=== PATIENT | female | born 1955 | race African-American/Black ===

== ENCOUNTER → 2020-06-20 14:12 | Outpatient (CLI) | payer MEDICARE, SELFPAY ==
--- NOTE | ~2020-06-20 | XR_ITS ---
XR hand LT 2V DATE: 06/20/2020 14:48 INDICATION: Left hand and shoulder pain TECHNIQUE: 3 views COMPARISON: None FINDINGS: There is moderately severe osteoarthritis at the first carpometacarpal joint. There is oste ophytic change at multiple interphalangeal joints. No fracture or dislocation, periosteal reaction or bone destruction is detected. IMPRESSION: Polyarticular osteoarthritis Reviewed, dictated and finalized at location A.
--- NOTE | ~2020-06-20 | XR_ITS ---
XR shoulder LT min 2V DATE: 06/20/2020 14:49 INDICATION: Left shoulder and hand pain TECHNIQUE: 4 views COMPARISON: None FINDINGS: There is prominent joint space narrowing and spurring at the left glenohumeral joint consis tent with severe osteoarthritis. No fracture or dislocation, periosteal reaction or bone destruction or any significant abnormal soft tissue calcification at the left shoulder is evident. IMPRESSION: Severe left glenohumeral osteoarthritis Reviewed, dictated and finalized at location A.
== END ==
PROVIDERS: PCP Family Medicine; Visit Provider Family Medicine
DX: M19.012 Primary osteoarthritis, left shoulder (principal); M19.042 Primary osteoarthritis, left hand
CPT/HCPCS: 73030; 73120

== ENCOUNTER → 2020-08-01 12:36 | Outpatient (CLI) | payer MEDICARE, SELFPAY ==
--- NOTE | ~2020-08-01 | XR_ITS ---
XR knee LT 3V 08/01/2020 13:33 Indication: Elevated rheumatoid factor. Procedure: 3 views left knee Comparison: 03/26/2016 Findings: There is moderate-severe osteoarthritis of the left knee. No fracture or traumatic malalign ment. No significant joint effusion. No erosive changes to suggest inflammatory arthropathy. Impression: 1: Severe osteoarthritis of the left knee. Reviewed, dictated and finalized at location B. Impression: 1: Severe osteoarthritis of the left knee.
--- NOTE | ~2020-08-01 | XR_ITS ---
EXAMINATION: XR sacroiliac joints min 3V INDICATION: Elevated rheumatoid factor TECHNIQUE: Three views of the sacroiliac joints are obtained. COMPARISON: 03/26/2016, 08/11/2013 FINDINGS: Bone alignment is normal. There is no fracture. No significant sclerosis or erosion are ellis ntified. Pelvic calcifications are noted. There is moderate lumbar spondylosis. The bowel gas pattern is normal. IMPRESSION: 1. No acute osseous abnormality. Reviewed, dictated and finalized at location A.
--- NOTE | ~2020-08-01 | XR_ITS ---
XR knee RT 3V 08/01/2020 13:34 Indication: Elevated rheumatoid factor. Procedure: 3 views right knee Comparison: 03/26/2016 Findings: There is severe tricompartment osteoarthritis of the right knee. No fracture, subluxation o r dislocation. No significant joint effusion. Impression: 1: Severe osteoarthritis of the right knee. Reviewed, dictated and finalized at location B. Impression: 1: Severe osteoarthritis of the right knee.
--- NOTE | ~2020-08-01 | XR_ITS ---
XR lumbar spine 2-3V 08/01/2020 13:33 Indication: Elevated rheumatoid factor. Low back pain. Procedure: 3 views lumbar spine Comparison: No prior studies for comparison. Findings: There is disc narrowing at all lumbar levels. Mild facet hypertrophy at L4-5 and L5-S1. No fracture, subluxation or dislocation. No evidence for spondylolisthesis. Sacral foramen are symmetric . Normal lumbar alignment. Impression: 1: Moderate lumbar spondylosis. Reviewed, dictated and finalized at location B. Impression: 1: Moderate lumbar spondylosis.
--- NOTE | ~2020-08-01 | XR_ITS ---
EXAMINATION:XR cervical spine 4-5V DATE: 08/01/2020 13:33 INDICATION: Neck pain, elevated rheumatoid factor TECHNIQUE: AP, lateral, lateral swimmers and odontoid views of the cervical spine are provided. COMPARISON: CT, 06/22/2015 FINDINGS: There are 2 mm of chronic retrolisthesis of C3 on C4. The odontoid is intact. No fracture i s identified. The vertebral body heights are maintained. There is chronic moderate to severe loss of intervertebral disc space height at C3-4 and C6-7. Small degenerative osteophytes project from the an terior endplates of multiple vertebral bodies. IMPRESSION: 1. Moderate cervical spondylosis without acute findings or significant interval change. Reviewed, dictated and finalized at location A.
== END ==
PROVIDERS: PCP Physician Assistant; Visit Provider Physician Assistant Medical
DX: R76.8 Other specified abnormal immunological findings in serum (principal); M25.50 Pain in unspecified joint; M47.812 Spondylosis without myelopathy or radiculopathy, cervical region; M47.816 Spondylosis without myelopathy or radiculopathy, lumbar region; M17.0 Bilateral primary osteoarthritis of knee
CPT/HCPCS: 72050; 72100; 72202; 73562

== ENCOUNTER → 2022-05-01 11:22 | Outpatient (CLI) | payer MEDICAID, SELFPAY ==
--- NOTE | ~2022-05-01 | XR_ITS ---
XR lumbar spine 2-3V DATE: 05/01/2022 12:02 INDICATION: Low back pain TECHNIQUE: AP, lateral, coned lateral lumbosacral views COMPARISON: 08/01/2020 lumbar spine FINDINGS: Diffuse idiopathic skeletal hyperostosis of the thoracic spine. Included lower thoracic and lumbar pedicles are intact. No fracture or bone destruction of the lumbar spine. Moderately severe degenerative disc disease noted throughout the lumbar and lower cervical spine. There is prominent degenerative change at the apophyseal joints with associated grade 1 anterolisthes is at L2-3 and L4-5. IMPRESSION: Diffuse idiopathic skeletal hyperostosis of the thoracic spine Moderately severe degenerative disease throughout the lumbar spine Degenerative changes apophyseal joints with associated minimal grade 1 anterolisthesis at L2-3 and L4 -5 Reviewed, dictated and finalized at location B. IMPRESSION: Diffuse idiopathic skeletal hyperostosis of the thoracic spine Moderately severe degenerative disease throughout the lumbar spine Degenerative changes apophyseal joints with associated minimal grade 1 anteroli sthesis at L2-3 and L4-5
== END ==
PROVIDERS: PCP Physician Assistant; Visit Provider Physician Assistant
DX: M48.14 Ankylosing hyperostosis [Forestier], thoracic region (principal); M47.896 Other spondylosis, lumbar region
CPT/HCPCS: 72100

== ENCOUNTER → 2022-05-15 10:56 | Outpatient (CLI) | payer MEDICARE, MEDICAID, SELFPAY ==
--- NOTE | ~2022-05-15 | XR_ITS ---
XR hand BI arthritis min 3V DATE: 05/15/2022 11:31 INDICATION: Joint pain. Rheumatoid arthritis. TECHNIQUE: 5 views of each hand COMPARISON: 06/20/2020 left hand FINDINGS: Left hand: Diffuse osteopenia. There is interval surgical resection of the triquetrum bone since 06/20/2020. Small residual bone fragm ents are noted in this area. Osteoarthritic change at the triscaphe and first carpometacarpal joint, first metacarpophalangeal and multiple interphalangeal joints. No erosive changes are noted. No fracture, dislocation, periosteal reaction or bone destruction. Right hand: Osteopenia. There is osteophytic change at the radiocarpal and triscaphe joints and particularly at the first car pometacarpal joint. Mild osteophyte is at first and second metacarpophalangeal joints and multiple interphalangeal joints . No erosive change is noted. No fracture, dislocation, periosteal reaction or bone destruction. IMPRESSION: Osteopenia Polyarticular osteoarthritis of both hands; no erosive changes noted Status post left triquetrum resection Reviewed, dictated and finalized at location B.
--- NOTE | ~2022-05-15 | XR_ITS ---
XR foot RT min 3V DATE: 05/15/2022 11:31 INDICATION: Rheumatoid arthritis. Joint pain. TECHNIQUE: 5 views COMPARISON: None FINDINGS: Diffuse osteopenia. Prominent plantar calcaneal and slight posterior calcaneal enthesopathy. Prominent osteophytic change at the tarsal and particularly tarsometatarsal and first metatarsophalan geal joints and to a lesser extent interphalangeal joints. No fracture, dislocation, periosteal reaction or bone destruction. IMPRESSION: Osteopenia Polyarticular osteoarthritis Calcaneal enthesopathy Reviewed, dictated and finalized at location B.
--- NOTE | ~2022-05-15 | XR_ITS ---
XR foot LT min 3V DATE: 05/15/2022 11:31 INDICATION: Left foot pain. Rheumatoid arthritis. TECHNIQUE: 4 views COMPARISON: None FINDINGS: There is osteopenia. There is severe osteoarthritic change with obliteration of joint space and prominent spurring at the first metatarsophalangeal joint. Osteoarthritic change at the tarsometatarsal joints. There is osteoa rthritic change at the interphalangeal joints as well. Prominent plantar calcaneal enthesopathy. No fracture, dislocation, periosteal reaction or bone destruction is detected. IMPRESSION: Osteopenia Plantar calcaneal enthesopathy Polyarticular osteoarthritis, most severe at first metatarsophalangeal joint Reviewed, dictated and finalized at location B.
== END ==
PROVIDERS: PCP Physician Assistant
DX: M19.072 Primary osteoarthritis, left ankle and foot (principal); M19.071 Primary osteoarthritis, right ankle and foot; M77.32 Calcaneal spur, left foot; M77.31 Calcaneal spur, right foot
CPT/HCPCS: 73130; 73630

== ENCOUNTER 2022-10-25 17:54 | Emergency (ER) | payer MEDICARE, MEDICAID, SELFPAY ==
[2022-10-25] VITALS (7 sets, daily range): BP systolic 125–179; BP diastolic 73–100; PULSE 72–87; RESP 16–20; TEMP 36.6–36.8; O2SAT 100
--- NOTE | ~2022-10-25 | CT_ITS ---
EXAMINATION: CTA BRAIN/CAROTID DATE: 10/25/2022 20:19 INDICATION: 2 weeks of fatigue and dizziness TECHNIQUE: Computed tomographic angiography (CTA) of the head and neck was performed with 100 mL Omni paque-350 intravenous contrast. Multiplanar reconstructions and maximum intensity projection 3D-recon structions of the carotid arteries and of the intracranial arteries were created by the technologist on a separate workstation. Precontrast CT of the head was also obtained. Automated exposure control and iterative reconstruction technique were employed.The dose-length product was 1883.20 mGy-cm. COMPARISON: None. FINDINGS: Carotid arteries: There is a portion of the aortic arch is normal in caliber with no atherosclerotic plaque or dissecti on. There is no evident atherosclerotic plaque with 0% stenosis of the right and left carotid bulbs r elative to normal distal artery lumen diameter (NASCET criteria). The extracranial left vertebral art qing is dominant. There is no evident stenosis or dissection along the vertebral arteries. Cervical so ft tissues and visualized superior mediastinum is unremarkable. Visualized portion of the bilateral m id to upper lungs are clear. Head: No acute intracranial hemorrhage, acute infarction or abnormal extra axial fluid collection. There is mild scattered white matter hypoattenuation consistent with chronic small vessel ischemic disease. Ventricles are normal and symmetric. No mass/mass effect. No abnormally enhancing brain lesions on th e head CT angiogram. The orbits, paranasal sinuses and mastoid air cells are normal. Intracranial arteries There is no hemodynamically significant stenosis in the vertebral, basilar and internal carotid arter ies. The left vertebral artery is dominant. There are no aneurysms identified. Both A1 and P1 segmen ts are patent. The left P1 segment is small in the right P1 segment is diminutive with collateral sup ply provided by larger caliber bilateral posterior communicator arteries. There is also a patent ante rior to indicating artery. Cerebral arterial arborization appears symmetric. IMPRESSION: 1. No evident plaque with 0% stenosis of the right and left carotid bulbs relative to normal distal a rtery lumen diameter (NASCET criteria). 2. No hemodynamically significant stenosis, occlusion, aneurysm or dissection of the intracranial art eries. 3. Mild scattered white matter hypoattenuation consistent with chronic small vessel ischemic disease. No acute intracranial process. Reviewed, dictated and finalized at location A. OLOGY PHYSICIAN IMPRESSION: 1. No evident plaque with 0% stenosis of the right and left carotid bulbs relat hermann to normal distal artery lumen diameter (NASCET criteria). 2. No hemodynamically significant stenosis, occlusion, aneurysm or dissection o f the intracranial arteries. 3. Mild scattered white matter hypoattenuation consistent with chronic small ve ssel ischemic disease. No acute intracranial process.
--- NOTE | ~2022-10-25 | XR_ITS ---
XR chest 2V DATE: 10/25/2022 19:22 INDICATION: Left-sided weakness TECHNIQUE: AP and lateral views COMPARISON: None FINDINGS: Normal heart size. There is aortic unfolding. There is minimal infiltrate or atelectasi s at the left lung base. Otherwise no pulmonary infiltrate or consolidation is detected. No pulmona ry vascular congestion or pleural effusion or pneumothorax. Diffuse idiopathic skeletal hyperostosis of the thoracic spine. Osteoarthritis at the glenohumeral j oints. IMPRESSION: Minimal infiltrate and/or atelectasis at the left lung base Reviewed, dictated and finalized at location A. COUNTER
--- NOTE | ~2022-10-25 | XR_ITS ---
XR shoulder LT min 2V DATE: 10/25/2022 20:04 INDICATION: Left shoulder pain TECHNIQUE: 4 views COMPARISON: 06/20/2020 left shoulder FINDINGS: There is virtual obliteration of left glenohumeral joint space with severe spurring. There is joint space narrowing at the left acromioclavicular joint. No fracture, dislocation, periosteal reaction or bone destruction or abnormal soft tissue calcificati on. Degenerative changes of the included lower cervical spine. Spina bifida occulta at C7. Small left cervical rib. Diffuse idiopathic skeletal hyperostosis of the thoracic spine. IMPRESSION: Severe left glenohumeral osteophyte is Degenerative change of the left acromioclavicular joint Small left cervical rib Degenerative disc disease in the lower cervical spine Diffuse idiopathic skeletal hyperostosis of the thoracic spine Reviewed, dictated and finalized at location A. RGROUND FOREMAN
--- NOTE | 2022-10-25 18:52 | ECG_ITS ---
Measurements Intervals [place] Rate: 76 P: 34 AK: 208 QRS: 18 QRSD: 90 T: 33 QT: 370 QTc: 417 Interpretive Statements SINUS RHYTHM BORDERLINE AV CONDUCTION DELAY VOLTAGE CRITERIA FOR LVH BASELINE ARTIFACT- I, II, III, V1-V2 BORDERLINE ECG NO PREVIOUS ECG AVAILABLE FOR COMPARISON Electronically Signed On 10-25-2022 20:53:24 ROLL TRUCKER by Keny Epperson D.O.
[2022-10-25 19:12] LABS: Basophils Percent Auto 0.6 % (0.2-1.2); Eosinophils Absolute Auto 0.1 K/mm3 (0-0.3); Eosinophils Percent Auto 2.4 % (0-4.4); Hematocrit 39.4 % (37.0-47.0); Hemoglobin 12.1 g/dL (12.0-15.0); Immature Granulocyte Absolute 0.02 K/mm3 (0.00-0.031); Immature Granulocyte Percent A 0.4 % (0-0.5); Lymphocytes Percent Auto 32.3 % (18.3-44.2); Mean Corpuscular HGB Conc 30.7 g/dl (32-36); Mean Corpuscular Hemoglobin 29.6 pg (26-34); Mean Corpuscular Volume 96.3 fl (80-100); Mean Platelet Volume 10.9 fl (7.4-10.4); Monocytes Absolute Auto 0.5 K/mm3 (0.1-0.6); Monocytes Percent Auto 10.1 % (2.6-8.5); Neutrophils Absolute Auto 2.5 K/mm3 (1.3-6.7); Neutrophils Percent Auto 54.2 % (45.5-73.1); Platelet Count Result 231 k/mm3 (150-375); Red Blood Count 4.09 M/mm3 (4.2-5.4); Red Cell Distribution Width 12.9 % (11.5-14.5); White Blood Count 4.7 K/mm3 (4.5-10.0)
[2022-10-25 19:30] LABS: Alanine Aminotransferase 21 U/L (6-35); Albumin Level 4.3 g/dL (3.5-5.1); Alkaline Phosphatase 112 U/L (38-126); Anion Gap 5 mmol/L (8-16); Aspartate Amino Transferase 26 U/L (14-36); Bilirubin,Total 0.5 mg/dL (0.2-1.3); Blood Urea Nitrogen 18 mg/dL (7-17); Calcium 8.9 mg/dL (8.4-10.2); Carbon Dioxide 32 mmol/L (22-30); Chloride 105 mmol/L (98-107); Estimated CRCL calculation 87 ml/min; Estimated Glomerular Filt Rate > 60; Glucose 103 mg/dL (65-110); Sodium 142 mmol/L (137-145)
[2022-10-25 19:48] LABS: Appearance Urine Slightly Cloudy (Clear); Bilirubin Urine Negative (Negative); Blood Urine Trace-intact (Negative); Color Urine Yellow (Yellow); Glucose Urine UA Negative (Negative); Ketones Urine Negative (Negative); Leukocyte Esterase Ur 1+ LEU/UL (Negative); Nitrate Urine Negative (Negative); Protein Urine Negative (Negative); Specific Grav Ur >= 1.030 (1.001-1.035)
--- NOTE | 2022-10-25 19:48 | ED.DIZZY ---
HPI - Dizziness General Chief Complaint: Dizziness Stated Complaint: dizziness with left arm tingling x 2 weeks Time Seen by Provider: 10/25/22 19:01 Source: patient, RN notes reviewed and old records reviewed Mode of arrival: ambulatory Limitations: no limitations History of Present Illness HPI Narrative: This is a 67 year old female who presents for evaluation of dizziness and left shoulder pain. Patient reports chronic left shoulder pain for years and she has been evaluated prior to this. She takes diclofenac and tramadol for her shoulder pain. She reports intermittent swelling to left shoulder with intermittent shoot pain from shoulder down arm for over 3 weeks. This is chronic pain . Her daughter has really brought patient for evaluation of dizziness. The left shoulder pain is not associated with the dizziness. PAtient reports intermittent dizziness that she describes as room spinning. It seems worse with movement , laying down and turning her head. She states the dizziness occurs in brief spells lasting a couple of minutes. She denies associated visual changes, focal weakness, nausea, vomiting, speech changes. Her daughter states her dizziness has gotten worse and it has caused her to fall . Patient denies unsteady gait. Related Data Allergies Allergy/AdvReac Type Severity Reaction Status Date / Time No Known Allergies Allergy Verified 10/25/22 17:55 Review of Systems Constitutional: Constitutional: Denies weakness ENT: Reports vertigo and Denies nasal congestion Cardiovascular: Cardiovascular: Denies syncope, Denies rapid heart rate, Denies irregular heart rhythm, Denies leg edema and Denies dyspnea Respiratory: Respiratory: Denies chest congestion, Denies hemoptysis, Denies excessive phlegm production and Denies dyspnea Gastrointestinal: Gastrointestinal: Denies abdominal pain, Denies hematochezia, Denies diarrhea and Denies vomiting Genitourinary: Genitourinary: Denies hematuria and Denies dysuria Musculoskeletal: Musculoskeletal: Reports arthralgias, Denies joint swelling, Denies loss of height and Denies muscle weakness Neurologic: Reports vertigo, Denies syncope, Denies headache(s), Denies focal weakness, Denies numbness and Denies weakness PMFSH Past Medical History Medical History Chronic shoulder pain Surgical History Surgical History (Updated 10/25/22 @ 19:54 by Aria Pacheco MD) H/O carpal tunnel repair Social History Social History Smoking status: Never smoker Alcohol intake: never Exam Const: General: healthy appearing, no acute distress and alert Nutritional Appearance: well nourished Orientation/consciousness: patient oriented x3 Limitations: no limitations HENMT: Head: normal to inspection Ears: TM's normal bilaterally Mouth: Yes Normal oral and palatal mucosa present Teeth and gingiva: dentition normal Throat: posterior oropharynx normal Eyes: Conjunctivae: conjunctivae normal Pupils: Equal, round and reactive pupils present EOM: EOMs intact bilaterally Neck: Neck: normal visual inspection Chest: Chest palpation & inspection: normal inspection of the chest Resp: Effort & Inspection: normal respiratory effort Auscultation: clear to auscultation bilaterally Cardio: Rate: regular rate Rhythm: regular rhythm Heart sounds: no murmurs GI: GI Palp: Yes Soft to palpation, No Tenderness to palpation present (GI), No Guarding due to palpation present (GI) and No Rigid due to palpation Auscultation: normal bowel sounds Skin: General skin exam: normal color Rashes: no rashes Wounds: no wounds Neuro: General: patient oriented x3, moves all extremities and CN's II-XI intact bilaterally Cranial nerves: Yes CN's II-XII intact bilaterally and Yes Nystagmus not present Speech: normal speech Motor exam (neuro): 5/5 motor strength present throughout Sensory Exam:
[2022-10-25 19:55] LABS: Bacteria Urine Trace /hpf; Mucus Urine Rare /lpf; Squamous Epithelial Cell Urine Few /hpf (Few)
[2022-10-25] MEDS: MECLIZINE HCL 25 MG TABLET PO (20:33)
[2022-10-25] MEDS: SODIUM CHLORIDE 0.9% IV 500 ML 999 ML IV CONT (20:34)
[2022-10-25 20:37] LABS: Add Urine Microscopic? YES
--- NOTE | 2022-10-25 22:23 | PC.NURSE ---
ambulated in arias with stand by assist of ERP
== END 2022-10-25 22:36 | disposition home or self-care (01) ==
PROVIDERS: Preventive Medicine Aerospace Medicine; Emergency Provider General Practice
DX: H81.10 Benign paroxysmal vertigo, unspecified ear (principal); E86.0 Dehydration; M19.012 Primary osteoarthritis, left shoulder; R82.998 Other abnormal findings in urine; R94.31 Abnormal electrocardiogram [ECG] [EKG]; M50.30 Other cervical disc degeneration, unspecified cervical region; M48.14 Ankylosing hyperostosis [Forestier], thoracic region
CPT/HCPCS: 36415; 70496; 70498; 71046; 73030; 80053; 81001; 85025; 87086; 87088; 93005; 96360; 99284; A9270; J7040; Q9967

== ENCOUNTER 2023-05-23 12:30 | Outpatient (RCR) | payer MEDICARE, MEDICAID, SELFPAY ==
--- NOTE | 2023-02-27 15:43 | PTOPEVAL1 ---
Assessment and note entered by Amber Ge DPT Evaluation Information Assessment Status Evaluation Subjective Information Pt had L total shoulder on 02/19/23, went home on . Has been doing exercises while at home. Will return to MD at the end of next week. Highest pain 09/21 recently and lowest /. Pt is R hand dominant. Pt has to have help from her daughter for dressing and all other activities right now. Is currently using a nigel walker but did not use one prior to surgery. 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 Reported Pain Level Pain Score Moderate Pain: Shoemaker Murphy Assessment PT Clinical Summary The patient is presenting to skilled therapy s/p L total shoulder replacement on 02/19/23. She is currently wearing a sling at all times and presents with significant passive motion limitations in flexion and external rotation. She reports significant pain and requires assistance for all activities currently. She will benefit from therapy to address her motion per protocol in order to reduce pain and return to prior level of function. Plan of Care Interventions Electrical Stimulation,Hot Pack/Cold Pack,Manual Therapy,Neuro Re-education,Patient/Caregiver Education,Therapeutic Activities,Therapeutic Exercise,Self-Care/Home Management PT Services Indicated Yes Treatment Frequency and 2 times a week for 6 weeks Duration These treatments will address the objective and functional deficits as defined above. The patient will be advanced safely and appropriately in order for the patient to progress towards his/her prior level of function. Additional exercises will be introduced and as well as a comprehensive home exercise program upon discharge, if needed, ?to ensure carryover of functional gains achieved in the clinic. This treatment plan has been reviewed and agreement upon by the patient.
--- NOTE | 2023-03-28 11:34 | PTOPPROG ---
Assessment and note entered by Amber Ge DPT Evaluation Information Assessment Status Progress Subjective Information Highest pain in the last week 3/10 and lowest 0/10 . States overall she is feeling better with therapy, not as much pain and her arm is looser. No longer wearing her sling. Unsure when her next appointment is with MD, plans to call today. Assessment PT Clinical Summary The patient has made good progress so far in therapy and reports greatly decreased pain overall . She demonstrates passive flexion ROM to 114 and passive external rotation to 25. She will highly benefit from continued therapy to further improve her range of motion and strength per protocol in order to return to prior level of function. Plan of Care Interventions Electrical Stimulation,Hot Pack/Cold Pack,Manual Therapy,Neuro Re-education,Patient/Caregiver Education,Therapeutic Activities,Therapeutic Exercise,Self-Care/Home Management PT Services Indicated Yes Treatment Frequency and 2 times a week for 4 weeks Duration These treatments will address the objective and functional deficits as defined above. The patient will be advanced safely and appropriately in order for the patient to progress towards his/her prior level of function. Additional exercises will be introduced and as well as a comprehensive home exercise program upon discharge, if needed, ?to ensure carryover of functional gains achieved in the clinic. This treatment plan has been reviewed and agreement upon by the patient.
--- NOTE | 2023-04-02 11:34 | PCPTNOTE ---
Patient called & cancelled scheduled appointment this date due to being double booked.
--- NOTE | 2023-04-25 15:30 | PTOPPROG ---
Assessment and note entered by Amber Ge DPT Evaluation Information Assessment Status Progress Subjective Information Highest pain in the last week 3/10 and 0/10. Still feels a pulling in her shoulder. Has been able to dress independently depending on what she is wearing. Is right handed so does not use her left to eat or brush teeth regardless. States she has not tried to cook yet. Returns to MD on 05/06/23. Assessment PT Clinical Summary The patient has made some progress in therapy and demonstrates passive flexion to 140 and active flexion to 60. She reports minimal pain but has not yet been able to use her L UE for most activities. Due to her progress but significant lack of active motion, she will benefit from continuing therapy to return to full function. Plan of Care Interventions Electrical Stimulation,Hot Pack/Cold Pack,Manual Therapy,Neuro Re-education,Patient/Caregiver Education,Therapeutic Activities,Therapeutic Exercise,Self-Care/Home Management PT Services Indicated Yes Treatment Frequency and 2 times a week for 4 weeks Duration These treatments will address the objective and functional deficits as defined above. The patient will be advanced safely and appropriately in order for the patient to progress towards his/her prior level of function. Additional exercises will be introduced and as well as a comprehensive home exercise program upon discharge, if needed, ?to ensure carryover of functional gains achieved in the clinic. This treatment plan has been reviewed and agreement upon by the patient.
--- NOTE | 2023-05-23 13:19 | PTOPPROG ---
Assessment and note entered by Amber Ge DPT Evaluation Information Assessment Status Progress Subjective Information Highest pain in last week 1/10 and lowest 0/10. States she has been trying to use her left arm more for activities at home but still does not do much with it due to being R handed. States she is still not able to use her L UE as much as prior to the surgery, difficulty doing her hair. Saw MD on 05/06/23 and reports she goes back in 2 months. Assessment PT Clinical Summary The patient has continued to make progress in therapy and reports greatly decreased pain overall . She demonstrates improved shoulder range of motion but still very limited and reports continued difficulty with activities like doing her hair. She will benefit from further therapy to address strength and motion and improve function at home. Plan of Care Interventions Electrical Stimulation,Hot Pack/Cold Pack,Manual Therapy,Neuro Re-education,Patient/Caregiver Education,Therapeutic Activities,Therapeutic Exercise PT Services Indicated Yes Treatment Frequency and 1 time a week for 4 visits Duration These treatments will address the objective and functional deficits as defined above. The patient will be advanced safely and appropriately in order for the patient to progress towards his/her prior level of function. Additional exercises will be introduced and as well as a comprehensive home exercise program upon discharge, if needed, ?to ensure carryover of functional gains achieved in the clinic. This treatment plan has been reviewed and agreement upon by the patient.
--- NOTE | 2023-05-26 13:09 | PCPTNOTE ---
This treatment is being continued on visit number [id number]. Please see documentation on both accounts to view progress. Completed interventions, outcomes, and problems have been marked as Inactive to facilitate the copying of the Care plan routine for recurring accounts.
== END 2023-05-26 09:55 | disposition home or self-care (01) ==
LOC: ANHPT 12:30
DX: Z47.1 Aftercare following joint replacement surgery (principal); Z96.612 Presence of left artificial shoulder joint
CPT/HCPCS: 97014; 97110; 97112; 97140; 97161; 97530; G0283

== ENCOUNTER 2023-06-19 14:30 | Outpatient (RCR) | payer MEDICARE, MEDICAID, SELFPAY ==
--- NOTE | 2023-05-26 13:09 | PCPTNOTE ---
The treatment documented on this account is a continuation of the treatment documented on visit number [id number]. Please see documentation on both accounts to view progress. The Plan of Care has been transitioned and updated within the new V#. I have addressed and agree with the discipline specific Problems, Interventions, and Goals for the current certification period. Completed interventions, outcomes, and problems have been marked as Inactive to facilitate the copying of the Care plan routine for recurring accounts.
--- NOTE | 2023-06-19 15:17 | PTOPPROGNS ---
Assessment and note entered by Amber Ge DPT Evaluation Information Assessment Status Progress Subjective Information Pt reports no pain in the last week except not even a 1/10 while sleeping. Can use it a little bit now to do her hair but still has to modify. 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 Assessment PT Clinical Summary The patient has made limited progress since last re-evaluation and only demonstrates minor improvements in combined internal rotation motion. She continues to lack active motion in all planes and reports she has not used her L UE for most functional activities. She reports she has not been compliant with HEP due to family issues and has been again educated in importance of exercises and using her UE. Due to her limited progress, plan to hold therapy until follow up with MD and will likely discharge at that time. Plan of Care Interventions Therapeutic Exercise,Patient/Caregiver Education, Manual Therapy,Neuro Re-education,Therapeutic Activities,Hot Pack/Cold Pack,Electrical Stimulation PT Services Indicated - Treatment Frequency and hold therapy until follow up with MD, pending Duration discharge These treatments will address the objective and functional deficits as defined above. The patient will be advanced safely and appropriately in order for the patient to progress towards his/her prior level of function. Additional exercises will be introduced and as well as a comprehensive home exercise program upon discharge, if needed, ?to ensure carryover of functional gains achieved in the clinic. This treatment plan has been reviewed and agreement upon by the patient.
--- NOTE | 2023-07-15 13:26 | PTOPDC ---
Assessment and note entered by Amber Ge, DPT Evaluation Information Assessment Status Discharge - Pt Not Present Subjective Information - Assessment PT Clinical Summary Patient to be discharged this date, has not returned after follow up with MD. Plan of Care PT Services Indicated No
== END 2023-07-23 15:45 | disposition home or self-care (01) ==
LOC: ANHPT 14:30
DX: Z47.1 Aftercare following joint replacement surgery (principal); Z96.612 Presence of left artificial shoulder joint
CPT/HCPCS: 97110; 97140

== ENCOUNTER → 2023-12-08 11:57 | Outpatient (CLI) | payer MEDICARE, MEDICAID, SELFPAY ==
--- NOTE | ~2023-12-08 | MM_ITS ---
EXAMINATION: MM screening tami BI w juan david HISTORY: Screening TECHNIQUE: Craniocaudal and mediolateral oblique 3-D tomosynthesis images were obtained and synthetic 2-D images were generated. CAD analysis was submitted and interpreted. COMPARISON: 05/09/2016 BREAST PARENCHYMAL COMPOSITION: There are scattered areas of fibroglandular density. FINDINGS: There is no evidence of suspicious mass, calcification, or architectural distortion to sugg est malignancy in either breast. There has been no suspicious interval change. IMPRESSION: 1. No mammographic evidence of malignancy. 2. Recommend routine screening mammography in one year. BI-RADS Category 1: Negative Reviewed, dictated and finalized at location A. 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
== END ==
PROVIDERS: PCP Nurse Practitioner Family; Visit Provider Nurse Practitioner Family
DX: Z12.31 Encounter for screening mammogram for malignant neoplasm of breast (principal)
CPT/HCPCS: 77063; 77067

== ENCOUNTER 2024-05-12 17:50 | Emergency (ER) | payer MEDICARE, SELFPAY ==
--- NOTE | ~2024-05-12 | XR_ITS ---
EXAMINATION: XR wrist RT min 3V DATE: 05/12/2024 18:21 INDICATION: Right wrist pain post fall TECHNIQUE: Posteroanterior, ulnar deviation, oblique, and lateral views of the right wrist were obtai christina. COMPARISON: none FINDINGS: No fracture. Scapholunate advanced collapse (SLAC) wrist with chronic widening of the scapholunate in terval and interval progression of now severe osteoarthritis at the lunocapitate articulation of the midcarpal joint advanced osteoarthritis at the radioscaphoid articulation with prominent subarticular cystic changes at both sides of the joint space. Additional prominent cystic changes at the proximal pole of the hamate. Additional moderate to severe osteoarthritis at the first carpometacarpal joint and mild osteoarthritis the triscaphe and at each of the visualized metacarpophalangeal joints. IMPRESSION: 1. No acute osseous abnormality. 2. Interval progression of scapholunate advanced collapse (SLAC) wrist with now advanced radioscaphoi d osteoarthritis consistent with chronic scapholunate ligament insufficiency. Reviewed, dictated and finalized at location A. IMPRESSION: 1. No acute osseous abnormality. 2. Interval progression of scapholunate advanced collapse (SLAC) wrist with now advanced radioscaphoid osteoarthritis consistent with chronic scapholunate lig ament insufficiency.
--- NOTE | ~2024-05-12 | XR_ITS ---
EXAMINATION: XR knee LT min 4V DATE: 05/12/2024 18:21 INDICATION: Left knee pain post fall TECHNIQUE: Anteroposterior, 2 oblique and crosstable lateral views of the left knee were obtained COMPARISON: 08/01/2020 FINDINGS: Mild genu varus resulting from severe osteoarthritis in the medial compartment with remodeling of the medial tibial plateau. No fracture. Additional at least mild osteoarthritis at the lateral compartme nt and moderate patellofemoral osteoarthritis. Moderate-sized left knee joint effusion without eviden t layering lipohemarthrosis. IMPRESSION: 1. Progression of severe medial compartment predominant tricompartmental osteoarthritis of the left k nee with no acute osseous abnormality. 2. Moderate-sized left knee joint effusion. Reviewed, dictated and finalized at location A. IMPRESSION: 1. Progression of severe medial compartment predominant tricompartmental osteoa rthritis of the left knee with no acute osseous abnormality. 2. Moderate-sized left knee joint effusion.
[2024-05-12 17:59] VITALS: BP 116/71; PULSE 96; RESP 16; TEMP 36.6; O2SAT 100
--- NOTE | 2024-05-12 18:02 | ED.FALL ---
HPI - Fall General Chief Complaint: Fall Stated Complaint: fall Time Seen by Provider: 05/12/24 18:00 Source: patient Mode of arrival: ambulatory Limitations: no limitations History of Present Illness HPI Narrative: Patient is a 69 y/o female who presents to the ED with c/o a fall. Patient report she tripped and fell yesterday. Attempted to catch herself with her R arm. C/o pain to her R wrist and L knee. Reports mild swelling in these areas, difficulty ambulating d/t knee pain. Has not taken anything for pain today. Denies any other injuries or pain. Denies HI/LOC. Related Data Allergies Allergy/AdvReac Type Severity Reaction Status Date / Time No Known Allergies Allergy Verified 05/12/24 18:03 Review of Systems Review of Systems: CONSTITUTIONAL: Denies fever, chills, or sweats. MUSCULOSKELETAL: See HPI NEUROLOGIC: Denies HI, LOC, headache, dizziness, numbness, or weakness. All systems reviewed & are unremarkable except as noted in HPI and below PMFSH Past Medical History Medical History Chronic shoulder pain Surgical History Surgical History H/O carpal tunnel repair Social History Social History Smoking status: Never smoker Alcohol intake: never Exam Narrative: GENERAL: Well-appearing, obese with BMI of 33.7, and in no acute distress. HEAD: Normocephalic, atraumatic. CHEST: Clear to auscultation. ?No respiratory distress. HEART: Regular rate and rhythm.?Radial pulses intact. MSK: No gross deformities. Moves all extremities. Mild swelling and TTP throughout medial joint spaces of L anterior knee. Mild limited ROM of L knee d/t pain. Mild TTP over distal radius region of R wrist, mild swelling noted. No snuff box tenderness. No deformity. Sensation intact. NEURO: ?Alert and oriented x3. Course Vital Signs Vital signs: Vital Signs Temperature 97.8 F 05/12/24 17:59 Pulse Rate 96 05/12/24 17:59 Respiratory Rate 16 05/12/24 17:59 Blood Pressure 116/71 05/12/24 17:59 Pulse Oximetry 100 05/12/24 17:59 Oxygen Delivery Room Air 05/12/24 17:59 Temperature 97.8 F 05/12/24 17:59 Pulse Rate 96 05/12/24 17:59 Respiratory Rate 16 05/12/24 17:59 Blood Pressure 116/71 05/12/24 17:59 Pulse Oximetry 100 05/12/24 17:59 Oxygen Delivery Room Air 05/12/24 17:59 MDM - Fall MDM Narrative Medical decision making narrative: Patient?s injury is consistent with musculoskeletal etiology. No signs of neurologic or vascular compromise on physical examination. Compartments are soft without signs of compartment syndrome. XR of left knee showing osteoarthritis, moderate size joint effusion. No acute osseous abnormality. Right wrist without acute abnormality. Does show arthritis changes as well. Pain is consistent with wrist/knee strain. Will place patient in Brady bandage for wrist, knee immobilizer for knee. Offered crutches though patient has a walker she can use at home. No other injuries or areas of pain. No head injury or LOC. Patient is felt to be stable for discharge home and further outpatient management and treatment. Will refer to orthopedics for further evaluation needed. Discussed rice therapy. Given return precautions. Patient in agreement with plan. Discharged in stable condition. Medical Records Attestation: I reviewed the patient's medical records. Imaging Data Attestation: I personally reviewed and interpreted this imaging study as follows: Radiologist's impression: ITS Impressions Wrist X-Ray 05/12/24 18:24 IMPRESSION: 1. No acute osseous abnormality. 2. 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 Knee X-Ray 05/12/24 18:27 LANDEN
[2024-05-12] MEDS: KETOROLAC (*BKC) 60 MG/2 ML VIAL IM (19:12)
== END 2024-05-12 19:14 | disposition home or self-care (01) ==
PROVIDERS: Emergency Provider Physician Assistant; PCP Nurse Practitioner Family
DX: S66.911A Strain of unspecified muscle, fascia and tendon at wrist and hand level, right hand, initial encounter (principal); S86.912A Strain of unspecified muscle(s) and tendon(s) at lower leg level, left leg, initial encounter; M25.462 Effusion, left knee; M17.12 Unilateral primary osteoarthritis, left knee; M19.031 Primary osteoarthritis, right wrist; W01.0XXA Fall on same level from slipping, tripping and stumbling without subsequent striking against object, initial encounter
CPT/HCPCS: 73110; 73564; 96372; 99284; J1885